=== PATIENT | male | born 1995 | race African-American/Black ===

== ENCOUNTER 2018-12-09 17:18 | Emergency (ER) | payer OTHER, BC ==
--- NOTE | 2018-12-09 17:45 | ER Document Report ---
HPI - HPI Time Seen by Provider: 12/09/18 17:44 Pain Level: 2 Notes: Patient is an otherwise healthy 23-year-old male presenting to the emergency department with epigastric pain. He states while he was at work today at a [employer] they were loading a cart with heavy plywood when the cart hit him in the epigastric area abruptly. He states it knocked the wind out of him. Past Medical History - General Information source: Patient - Social History Smoking Status: Never Smoker Frequency of alcohol use: None Drug Abuse: None Family History: Reviewed & Not Pertinent - Medical History Medical History: Negative Pulmonary Medical History: Reports: Hx Asthma Surgical Hx: Negative - Immunizations Hx Diphtheria, Pertussis, Tetanus Vaccination: Yes Vertical Provider Document - CONSTITUTIONAL Notes: PHYSICAL EXAMINATION: GENERAL: Well-appearing, well-nourished and in no acute distress. HEAD: Atraumatic, normocephalic. EYES: Pupils equal round and reactive to light, extraocular movements intact, sclera anicteric, conjunctiva are normal. ENT: Nares patent, oropharynx clear without exudates. Moist mucous membranes. NECK: Normal range of motion, supple without lymphadenopathy LUNGS: Breath sounds clear to auscultation bilaterally and equal. No wheezes rales or rhonchi. HEART: Regular rate and rhythm without murmurs ABDOMEN: Soft, nontender, nondistended abdomen. No guarding, no rebound. No masses appreciated. Musculoskeletal: Normal range of motion, no pitting or edema. No cyanosis. NEUROLOGICAL: Cranial nerves grossly intact. Normal speech, normal gait. Normal sensory, motor exams PSYCH: Normal mood, normal affect. SKIN: Warm, Dry, normal turgor, no rashes or lesions noted. - INFECTION CONTROL TRAVEL OUTSIDE OF THE [place] IN LAST 30 DAYS: No Course - Re-evaluation Re-evalutation: Patient does have some tenderness to palpation over the epigastric area. Acute abdomen series was ordered and is negative for any free air. There is constip ation noted on the x-ray. This was discussed with the patient. Serial abdominal exams were performed and patient continues to have mild tenderness but no point tenderness and no significant pain noted. Patient feels improved and requesting to be discharged home. ED return precautions were discussed and patient verbalized understanding agreement with plan. - Vital Signs Vital signs: Temp Pulse Resp BP Pulse Ox 98.3 F 92 18 145/77 H 96 12/09/18 17:22 12/09/18 17:22 12/09/18 17:22 12/09/18 17:22 12/09/18 17:22 Discharge - Discharge Clinical Impression: Contusion Qualifiers: Encounter type: initial encounter Contusion area: abdominal wall Qualified Code(s): S30.1XXA - Contusion of abdominal wall, initial encounter Constipation Qualifiers: Constipation type: unspecified constipation type Qualified Code(s): K59.00 - Constipation, unspecified Condition: Stable Disposition: HOME, SELF-CARE Additional Instructions: The x-ray of your abdomen showed constipation. I do not see any free air or fluid to suggest any major injury to any of your organs. Please take it easy over the next day to 2 days. Follow-up with your primary care provider. Return to the emergency department immediately with any new or worsening pain, vomiting or any other symptom that is concerning to you. Forms: Return to Work
[2018-12-09] MEDS ORDERED: ACETAMINOPHEN 325 MG TABLET PO ONE (18:20)
--- NOTE | 2018-12-09 18:45 | RADIOLOGY REPORT (SQ) ---
EXAM DESCRIPTION: ACUTE ABDOMEN SERIES COMPLETED DATE/TIME: 12/09/2018 6:25 pm REASON FOR STUDY: epigastric pain s/p trauma COMPARISON: None. NUMBER OF VIEWS: Three views. TECHNIQUE: Frontal chest, supine abdomen and upright/decubitus abdomen radiographic images acquired. LIMITATIONS: None. FINDINGS: CHEST: Lungs clear of infiltrates. FREE AIR: None. No abnormal gas collections. BOWEL GAS PATTERN: There is considerable retained stool. CALCIFICATIONS: No suspicious calcifications. HARDWARE: None in the abdomen. SOFT TISSUES: No gross mass or suggestion of organomegaly. BONES: No acute fracture. No worrisome bone lesions. OTHER: No other significant finding. IMPRESSION: Possible constipation. No acute finding. TECHNICAL DOCUMENTATION: JOB ID: [id number] [employer]- All Rights Reserved Reading location - IP/workstation name: [email or web address]
[2018-12-09] MEDS ORDERED: DIPH/PERTUSS(ACELL)/TETANUS VAC/PF 0.5 ML SYR (>=10YO) IM ONE (19:33)
[2018-12-09 20:21] VITALS: BP 133/68
== END 2018-12-09 20:19 | disposition home or self-care (01) ==
LOC: ER 17:18
DX: S30.1XXA Contusion of abdominal wall, initial encounter (principal); K59.00 Constipation, unspecified; R10.13 Epigastric pain; W22.8XXA Striking against or struck by other objects, initial encounter; Y99.0 Civilian activity done for income or pay
CPT/HCPCS: 74022; 90471; 90715; 99283

== ENCOUNTER 2020-05-04 10:22 | Emergency (ER) | payer BC ==
[2020-05-04 10:30] VITALS: BP 122/72
--- NOTE | 2020-05-04 12:29 | ER Document Report ---
HPI - HPI Patient complains to provider of: headache Time Seen by Provider: 05/04/20 12:17 Pain Level: Denies Context: 24-year-old male with no previous medical problems presents to the emergency room complaining of intermittent headaches for the past 3 weeks. Complains of sinus congestion. Denies any fevers, no nausea, no vomiting, no head trauma. No history of migraines. Denies sudden thunderclap. Denies worst headache of his life. He states he gets headaches 3-4 times per week takes Motrin with relief but they keep coming back. States headaches do not keep him awake at night. Denies any recent travel. Denies any diarrhea, denies any abdominal pain. Denies any COVID-19 exposure. Associated Symptoms: None Exacerbated by: Denies Relieved by: Other - Motrin Similar symptoms previously: No Recently seen / treated by doctor: No - ROS Systems Reviewed and Negative: Yes All other systems reviewed and negative - CONSTITUTIONAL Constitutional: DENIES: Fever - EENT EENT: REPORTS: Nasal Drainage-Clear, Congestion. DENIES: Sore Throat, Ear Pain - NEURO Neurology: REPORTS: Headache - Not currently. DENIES: Weakness, Vision blurred, Dizzinesss / Vertigo - RESPIRATORY Respiratory: DENIES: Coughing - DERM Skin Color: Normal Skin Problems: None Past Medical History - General Information source: Patient - Social History Smoking Status: Never Smoker Chew tobacco use (# tins/day): No Frequency of alcohol use: None Drug Abuse: None Family History: Reviewed & Not Pertinent Patient has homicidal ideation: No Pulmonary Medical History: Reports: Hx Asthma Renal/ Medical History: Denies: Hx Peritoneal Dialysis - Immunizations Hx Diphtheria, Pertussis, Tetanus Vaccination: Yes Vertical Provider Document - CONSTITUTIONAL Agree With Documented VS: Yes Exam Limitations: No Limitations General Appearance: No Apparent Distress - INFECTION CONTROL TRAVEL OUTSIDE OF THE [place] IN LAST 30 DAYS: No - HEENT HEENT: Atraumatic, Normocephalic. negative: Conjuctival Injection, Normal ENT Exam, Tympanic Membrane Red, Tympanic Membrane Bulging Notes: Bilateral tympanic membranes are dull and retracted with clear fluid noted. Tenderness to the frontal sinuses on palpation. Clear nasal discharge noted bilaterally - NECK Neck: Normal Inspection, Supple. negative: Lymphadenopathy-Left, Lymphadenopathy-Right - RESPIRATORY Respiratory: Breath Sounds Normal, No Respiratory Distress - CARDIOVASCULAR Cardiovascular: Regular Rate, Regular Rhythm, No Murmur - NEURO Level of Consciousness: Awake, Alert, Appropriate Motor/Sensory: No Motor Deficit, No Sensory Deficit - DERM Integumentary: Warm, Dry Course - Re-evaluation Re-evalutation: 05/04/20 12:24 Patient was counseled on diagnosis. Use antibiotics and nasal spray as prescribed. Outpatient follow-up with a primary care physician if not improving in 2 to 3 days. On-call physician was provided. Patient was given strict return to the emergency room guidelines. Return for any new or worsening symptoms. All questions were answered. Patient verbalized understanding and agrees with plan of care. - Vital Signs Vital signs: Temp Pulse Resp BP Pulse Ox 97.9 F 77 18 122/72 98 05/04/20 10:29 05/04/20 10:29 05/04/20 10:29 05/04/20 10:29 05/04/20 10:29 Discharge - Discharge Clinical Impression: Sinusitis Qualifiers: Sinusitis location: frontal Chronicity: acute Recurrence: non-recurrent Qualified Code(s): J01.10 - Acute frontal sinusitis, unspecified Condition: Stable Disposition: HOME, SELF-CARE Instructions: Sinusitis (OM) Additional Instructions: Take antibiotics and use nasal spray as prescribed. Outpatient follow-up with your primary care physician if not improving in 2 to 3 days. Return to the emergency room for any new or worsening symptoms. Prescriptions: Amoxicillin/Potassium Clav [Augmentin 875-125 Tablet] 1 tab PO Q12 #14 tablet Fluticasone Propionate [Flonase Nasal [place] 50 Mcg/[place] 16 gm] 2 sprays NASL DAILY #1 inhaler Forms: Return to Work Referrals: CONCEPCIÓN DIAZ MD [ACTIVE STAFF] - Follow up as needed
== END 2020-05-04 12:32 | disposition home or self-care (01) ==
LOC: ER 10:22
DX: J01.10 Acute frontal sinusitis, unspecified (principal); R51.9 Headache, unspecified
CPT/HCPCS: 99283